=== PATIENT | male | born 1955 | race African-American/Black ===

== ENCOUNTER 2017-10-01 12:57 | Emergency (ER) | payer SELFPAY ==
[~2017-10-01] VITALS: Ht 185.4 cm; Wt 90.0 kg
[2017-10-01 15:30] VITALS: BP 141/78
== END 2017-10-01 15:40 | disposition home or self-care (01) ==
LOC: ER 13:12
DX: R44.3 Hallucinations, unspecified (principal); I10 Essential (primary) hypertension; E78.00 Pure hypercholesterolemia, unspecified
CPT/HCPCS: 99283

== ENCOUNTER 2018-11-28 10:16 | Emergency (ER) | payer SELFPAY ==
[~2018-11-28] VITALS: Ht 177.8 cm; Wt 100.0 kg
[2018-11-28] MEDS ORDERED: DEXAMETHASONE 10 MG/ML VIAL IM ONE (10:45)
[2018-11-28 11:25] VITALS: BP 145/81
== END 2018-11-28 11:27 | disposition home or self-care (01) ==
LOC: ER 10:39
DX: R20.2 Paresthesia of skin (principal); L29.9 Pruritus, unspecified; I10 Essential (primary) hypertension; E78.00 Pure hypercholesterolemia, unspecified; F99 Mental disorder, not otherwise specified
CPT/HCPCS: 96372; 99283; J1100; Z7610

== ENCOUNTER 2019-06-24 22:24 | Emergency (ER) | payer MEDICAID ==
[~2019-06-24] VITALS: Ht 182.9 cm; Wt 115.0 kg
[2019-06-24] MEDS ORDERED: IBUPROFEN 600MG TABLET PO ONE (23:30)
[2019-06-24] MEDS ORDERED: CEPHALEXIN 250MG CAPSULE PO ONE (23:30)
[2019-06-25 02:59] VITALS: BP 167/88
== END 2019-06-25 03:00 | disposition home or self-care (01) ==
LOC: ER 22:24
DX: E11.622 Type 2 diabetes mellitus with other skin ulcer (principal); L97.929 Non-pressure chronic ulcer of unspecified part of left lower leg with unspecified severity; I10 Essential (primary) hypertension; E78.00 Pure hypercholesterolemia, unspecified
CPT/HCPCS: 73590; 73610; 82962; 93970; 99284